=== PATIENT | female | born 1960 | race Caucasian/White ===

== ENCOUNTER → 2020-07-21 | Outpatient (CLI) | payer BC | LOC: EXRD 09:18 → MAMO 10:00 | DX: Z12.31 Encounter for screening mammogram for malignant neoplasm of breast (principal); M81.0 Age-related osteoporosis without current pathological fracture | CPT/HCPCS: 77063; 77067; 77080 ==

== ENCOUNTER → 2020-09-02 | Outpatient (CLI) | payer OTHER | LOC: KOH-I 11:22 | DX: S49.91XA Unspecified injury of right shoulder and upper arm, initial encounter (principal); S59.911A Unspecified injury of right forearm, initial encounter; M79.601 Pain in right arm; M25.521 Pain in right elbow; M79.641 Pain in right hand; M25.511 Pain in right shoulder; W19.XXXA Unspecified fall, initial encounter | CPT/HCPCS: 72040; 73010; 73030; 73080; 73090; 73130 ==

== ENCOUNTER 2021-07-20 16:20 | Emergency (ER) | payer BC ==
[~2021-07-20] VITALS: Ht 162.6 cm; Wt 56.2 kg
[2021-07-20 19:11] LABS: HEMOGLOBIN 15.7 gm/dl (12.3-15.3); RED BLOOD COUNT 5.18 M/UL (4.00-5.10); WHITE BLOOD COUNT 26.1 K/UL (4.5-11.0)
[2021-07-20] MEDS ORDERED: OMNICEF 300 MG300 MG PO (22:43)
== END 2021-07-20 22:50 | disposition home or self-care (01) ==
LOC: ER1 16:20
PROVIDERS: Emergency Medicine
DX: D72.829 Elevated white blood cell count, unspecified (principal); R52 Pain, unspecified; I10 Essential (primary) hypertension; F17.290 Nicotine dependence, other tobacco product, uncomplicated; Z88.0 Allergy status to penicillin; Z20.822 Contact with and (suspected) exposure to COVID-19
CPT/HCPCS: 0240U; 71045; 80053; 81001; 83605; 83690; 83735; 83880; 84100; 85025; 85610; 85652; 85730; 86140; 87040; 87081; 87086; 87880; 93005; 96374; 99284; J0696

== ENCOUNTER 2021-07-22 11:52 | Emergency (ER) | payer BC ==
[~2021-07-22 11:52] MED LIST: OMNICEF 300 MG300 MG PO
[2021-07-22 12:26] LABS: WHITE BLOOD COUNT 25.7 K/UL (4.5-11.0)
[2021-07-22 12:27] LABS: HEMOGLOBIN 13.3 gm/dl (12.3-15.3); RED BLOOD COUNT 4.44 M/UL (4.00-5.10)
[2021-07-22 12:55] LABS: BUN/CREATININE RATIO 27 (0-10)
[2021-07-22] MEDS ORDERED: OMEPRAZOLE40 MG PO (16:17)
== END 2021-07-22 16:40 | disposition home or self-care (01) ==
LOC: ER1 11:52
PROVIDERS: Emergency Medicine
DX: N39.0 Urinary tract infection, site not specified (principal); D72.829 Elevated white blood cell count, unspecified; K29.80 Duodenitis without bleeding; I10 Essential (primary) hypertension; Z90.710 Acquired absence of both cervix and uterus; Z90.49 Acquired absence of other specified parts of digestive tract
CPT/HCPCS: 80053; 81001; 83690; 85025; 99284; Q9967

== ENCOUNTER → 2021-07-31 | Outpatient (CLI) | payer BC ==
[~2021-07-31] MED LIST changes: +OMEPRAZOLE40 MG PO
== END ==
LOC: US 10:00
DX: R59.0 Localized enlarged lymph nodes (principal)
CPT/HCPCS: 76881